=== PATIENT | female | born 1940 | race Caucasian/White ===

== ENCOUNTER 2018-02-02 18:05 | Emergency (ER) | payer MEDICARE, OTHER, MEDICAID ==
[2018-02-02] MEDS ORDERED: Sodium Chloride 0.9% 10 ML Syringe FLUSH PRN (18:43)
[2018-02-02] MEDS ORDERED: Sodium Chloride 0.9% 1,000 ML IV SCH (18:45)
[2018-02-02] MEDS ORDERED: Piperacillin/Tazobactam 3.375 GM in Sodium Chloride 0.9% 100 ML IV ONE (19:00)
[2018-02-02 19:11] LABS: ANION GAP 15.8; CHLORIDE,CL 97 mmol/L (101-111); SODIUM,NA 132 mmol/L (135-145)
[2018-02-02] MEDS ORDERED: Morphine 2 MG/ML Syringe IVPUSH ONE (19:11)
[2018-02-02] MEDS ORDERED: Morphine 2 MG/ML Syringe ONE (19:12)
--- NOTE | 2018-02-02 19:55 | PCM.SN ---
- Free Text/Narrative Note: Chanel Smallwood is a 77-year-old lady who is resident of [facility] in [place]. She has a long history of multiple sclerosis with a neurogenic bladder, and has a suprapubic catheter. The catheter was due to be changed yesterday. I received a call from the [facility] late this afternoon. After the catheter was changed, staff was unable to flush the catheter and no urine drained. They did note that the urine contained quite a bit of sediment at the time of the change. Nursing tried again this morning to change the catheter, but again were unable to flush and no urine drained. This afternoon she complained on some low pelvic discomfort. She has no fever, marked abdomen pain, no hematuria. Several days ago she had some mild GI symptoms with loose stools and nausea, but these had resolved by the time the catheter was due to be changed. I asked that Arian be sent to the hospital and we obtained a CT scan of the pelvis. A small amount of contrast was placed in the suprapubic catheter. Images revealed that the catheter was outside the bladder and contrast was seen extravasating into the abdominal cavity. I called [facility] was spoke with Dr. Verdugo, [id number]. Dr. Verdugo accepted Mrs. Smallwood for transfer. Plan is for surgical repair of the bladder. I later spoke with Dr. Reddy, who will admit Arian to Medicine and follow with Dr. Verdugo. She will be transported by ground ambulance to [facility]. Prior to transfer, the suprapubic catheter was removed and a 14 Fr Echeverria catheter was placed. About 100 cc of urine was drained. She was kept NPO and IVF were started with NS. She was given Zosyn 3.375 mg x 1 dose and morphine sulfate 2 mg IVP x 1 dose for low pelvic pain (6/10), radiating to left side. At the time of discharge from the ER she was hemodynamically stable. The problem was thoroughly reviewed with her son, Patrick Smallwood (POA). He is in agreement with the proposed plan and transfer. Past Medical History: Multiple sclerosis since her early 30's; she is non-ambulatory. Neurogenic bladder with suprapubic catheter (2010). Pacemaker for complete heart block ( 1997). Pacemaker was replaced in 2011 and procedure was associated with multiple complications and a prolonged hospitalization. [facility] information can [facility]. The pacemaker was last interrogated on 01/10/2018. Right supracondylar fracture in 2017; fracture occured during a transfer. It was treated conservatively, remains non-ambulatory due to high risk for contralateral fracture. Occasional UTIs. MRSA carrier. Chronic back and shoulder pain. Depression and anxiety. Mild confusion. Examination: First seen in Radiology and then brought to ER. Awake, alert, oriented. Vital signs stable. Temp 99.3. In no acute distress. Tearful at times. HEENT: Clear. Moist mucous membranes. Chest: clear bilateral BS. Heart: regular. Abdomen: soft, somewhat tympanitic, mild tenderness in lower abdominal/ suprapublic area, without rebound or guarding. LABS: CBC, CMP, lactic acid, INR, UA with microscopic. Urine culture. Lab was UNABLE to obtain blood cultures. Results: WBC 14.3. Lactic acid 1.6. INR 1.2. UA: >100 WBC/hpf and many bacteria. IMPRESSION: 77-year-old lady with MS. History of neurogenic bladder with a suprapubic catheter in place since 2010. It appears that the urinary bladder has been perforated, as evidence by results of the CT scan performed today. 1. Urinary bladder perforation: Case discussed with Dr. Verdugo, Urology. Surgery will be required to repair injury to bladder. 2. Images of the CT scan have been sent to the [facility] PACs. 3. Past Medical History as above: patient has been stable for some time, without any recent issues except for mild gastroenteritis symptoms earlier this week. 4. Case was discussed with Dr. Peter Reddy, Hospitalist. Arian will be admitted to Medicine. Condition at the time of transfer: hemodynamically stable.
== END 2018-02-02 19:23 ==
LOC: DL.ED 18:05
DX: N32.89 Other specified disorders of bladder (principal); G35 Multiple sclerosis
CPT/HCPCS: 36415; 51702; 80053; 81001; 83605; 85025; 85610; 87086; 87088; 87186; 96374; 99284; J2270; J2543; J7030

== ENCOUNTER 2022-01-13 11:45 | Emergency (ER) | payer MEDICARE, OTHER, MEDICAID ==
[2022-01-13] MEDS ORDERED: Ondansetron 4 MG/2 ML SDV IV ONE (12:24)
[2022-01-13] MEDS ORDERED: Sodium Chloride 0.9% 10 ML Syringe FLUSH PRN (12:24)
[2022-01-13] MEDS ORDERED: fentaNYL 100 MCG/2 ML SDV IVPUSH ONE (12:24)
[2022-01-13] MEDS ORDERED: Acetaminophen/oxyCODONE 325-5 MG Tab PO ONE (12:39)
== END 2022-01-13 13:40 | disposition home or self-care (01) ==
LOC: DL.ED 11:45
DX: S82.832A Other fracture of upper and lower end of left fibula, initial encounter for closed fracture (principal); S82.302A Unspecified fracture of lower end of left tibia, initial encounter for closed fracture; I25.10 Atherosclerotic heart disease of native coronary artery without angina pectoris; I10 Essential (primary) hypertension; K21.9 Gastro-esophageal reflux disease without esophagitis; Z88.1 Allergy status to other antibiotic agents; Z79.82 Long term (current) use of aspirin; Z79.899 Other long term (current) drug therapy; W23.0XXA Caught, crushed, jammed, or pinched between moving objects, initial encounter; Y92.22 Religious institution as the place of occurrence of the external cause
CPT/HCPCS: 73610-LT; 99283